=== PATIENT | male | born 1980 | race Caucasian/White ===

== ENCOUNTER 2020-11-09 06:49 | Observation (INO) | payer MEDICAID ==
[~2020-11-09] VITALS: Ht 182.9 cm; Wt 70.8 kg
[2020-11-09] MEDS ORDERED: LANTUS100 UNITS/ SUB-Q (06:55)
--- NOTE | 2020-11-09 09:18 | NUR ---
PT TO ROOM 128 FROM ED. PT MOVES SELF TO BED WITH NO DIFFICULTY. STATES HE HAS BEEN VOIDING WELL IN ED. PT CONTINUOUSLY ASKING FOR FOOD AND DRINKS.
[2020-11-09] MEDS ORDERED: LANTUS SOL100 UNIT/1 SUB-Q (09:20)
--- NOTE | 2020-11-09 10:00 | NUR ---
PTS BLOOD SUGAR 415, TITRATED INSULIN DRIP TO 7.2 UNITS/HR
--- NOTE | 2020-11-09 10:45 | NUR ---
PT ABLE TO VOID 425 ML. URINE SPECIMEN SENT TO LAB
--- NOTE | 2020-11-09 11:08 | NUR ---
PTS BLOOD SUGAR 425. TITRATED INSULIN DRIP TO 10.8 UNITS/HR. PT RESTING AT THIS TIME. DENIES NEEDS.
--- NOTE | 2020-11-09 12:15 | NUR ---
pts blood sugar 341, titrated insulin to 9 units/hr. pt reports that his nausea is better. given lunch tray.
--- NOTE | 2020-11-09 13:00 | NUR ---
PTS BLOOD SUGAR UP TO 347, TITRATED INSULIN DRIP UP TO 12 UNITS/HR. PT REQUESTS TO HAVE DRESSING PLACED TO FOOT ULCER. WOUND NURSE CALLED
--- NOTE | 2020-11-09 13:19 | NUR ---
AT DIRECTION OF WOUND CARE NURSE. WOUND TO LEFT FOOT CLEANED WITH WOUND SPRAY, MEDIHONEY PLACED TO WOUND BED AND COVERED WITH ALLYVN DRESSING. PT TOLERATED WELL
--- NOTE | 2020-11-09 14:21 | NUR ---
PTS BLOOD SUGAR 282, TITRATED DRIP TO 8.4 UNITS/HR
--- NOTE | 2020-11-09 15:07 | NUR ---
PATIENT BUSY WITH STAFF. CM WILL CHECK IN TO ASSESS LATER.
--- NOTE | 2020-11-09 15:14 | NUR ---
PTS BLOOD SUGAR 272, DRIP REMAINS AT 8.4 UNITS/HR
--- NOTE | 2020-11-09 16:04 | NUR ---
PTS BLOOD SUGAR 286, INSULIN DRIP TITRATED TO 10.5 UNITS/HR
--- NOTE | 2020-11-09 16:58 | NUR ---
PTS BLOOD SUGAR 265, DRIP REMAINS AT 10.5 UNITS/HR
--- NOTE | 2020-11-09 17:10 | NUR ---
DR WARE IN TO SEE PT. ORDER TO GIVE ONE LITER BOLUS OF LR OVER ONE HOUR.
--- NOTE | 2020-11-09 18:18 | NUR ---
PTS BLOOD DRAWN FROM IV SITE AND SENT TO LAB
--- NOTE | 2020-11-09 19:01 | NUR ---
pts blood sugar down to 169. titrated drip to 6 units per hour. Switched fluid to d5 1/2ns @ 125 ml/hr
--- NOTE | 2020-11-09 19:10 | NUR ---
REPORT GIVEN TO HOISTER RN
--- NOTE | 2020-11-09 20:00 | NUR ---
SHIFT REPORT RECEIVED FROM CORKY KNIGHT. ASSESSMENT COMPLETED. PT SOMEWHAT DROWSY BUT IS ORIENTED, DENIES PAIN. LUNGS CLEAR, RA. HR REGULAR, TACHY 100-105. BOWEL TONES ACTIVE, DENIES NAUSEA. SKIN GROSSLY INTACT WITHOUT EDEMA, REPORTS NUMBNESS/TINGLING TO ALL EXTREMITIES. ULCER TO LEFT FOOT COVERED WITH ALLEVYN THAT IS C/D/I. CB, INSULIN DRIP TITRATED TO 3.2 UNITS/HR PER PROTOCOL. PT PROVIDED WITH SUGAR-FREE CLEAR LIQUID PER REQUEST.
--- NOTE | 2020-11-09 20:43 | NUR ---
SPOKE TO DR. WARE REGARDING PT'S RECENT BLOOD SUGAR AND LAB VALUES. PLAN TO GIVE 40 UNITS SEMGLEE AND THEN CHANGE INSULIN AND BLOOD SUGAR CHECKS TO [facility]. MAY ADVANCE DIET TO [facility].
--- NOTE | 2020-11-09 21:05 | NUR ---
CB, NO SLIDING SCALE REQUIRED AT THIS TIME. INSULIN DRIP OFF. 40 UNITS SEMGLEE ADMINISTERED. WILL CHANGE IV FLUIDS TO LR IN 1 HOUR.
--- NOTE | 2020-11-09 22:11 | NUR ---
IV FLUIDS SWITCHED TO LR AT 125ML/HR. PT SLEEPING ON LEFT SIDE AT THIS TIME, NO APPARENT DISTRESS, RESPIRATIONS EVEN AND UNLABORED.
--- NOTE | 2020-11-10 00:18 | NUR ---
ASSESSMENT COMPLETED AND UNCHANGED. PT DENIES PAIN OR NAUSEA. IV FLUIDS INFUSING WNL, IV SITES INTACT. URINAL EMPTIED. PT DENIES REQUESTS, CALL LIGHT WITHIN REACH.
--- NOTE | 2020-11-10 03:30 | NUR ---
PT CALLED TO REQUEST WARM BLANKET. ASSESSMENT COMPLETED AND UNCHANGED AT THIS TIME. PT DENIES FURTHER NEEDS, CALL LIGHT WITHIN REACH.
--- NOTE | 2020-11-10 06:32 | NUR ---
PT APPEARS TO BE SLEEPING, NO APPARENT DISTRESS. IVF INFUSING WNL. URINAL EMPTIED.
[2020-11-10] MEDS ORDERED: VENTOLIN HFA18 GM INH (07:29)
[2020-11-10] MEDS ORDERED: SILDENAFIL CIT100 MG PO (07:29)
--- NOTE | 2020-11-10 08:00 | NUR ---
RECEIVED REPORT AT 0700, PT IN BED AWAKE. PT STATED THAT HE WAS DOING MUCH BETTER AND WISHES TO D/C TODAY OR HE WOULD BE LEAVING AMA. I ENCOURAGED PT TO STAY UNTIL MD COULD SEE HIM. ONLY ISSUE NOTED ASSESSMENT CHAMBERS WAS HIS DIABETIC FOOT ULCER WHICH NEEDS A DRESSING CHANGE. OTHERWISE NO NEW ISSUES WERE NOTED.
[2020-11-10] MEDS ORDERED: TYLENOL325 MG PO (09:37)
[2020-11-10] MEDS ORDERED: HUMALOG100 UNIT/2 SUB-Q (09:38)
[2020-11-10] MEDS ORDERED: VITAMIN C1000 MG PO (09:38)
--- NOTE | 2020-11-10 09:39 | NUR ---
MED REC COMPLETE
--- NOTE | 2020-11-10 10:00 | NUR ---
PT IN ROOM. NO NEW CONCERNS NOTED.
[2020-11-10] MEDS ORDERED: LANTUS SOL100 UNIT/1 SUB-Q (10:53)
[2020-11-10] MEDS ORDERED: HUMALOG100 UNITS/ SUB-Q (10:54)
--- NOTE | 2020-11-10 12:35 | NUR ---
DRESSING ON LEFT TOE CHANGED BEFOR D/C. PT HAS HAD NO NEW COMPLAINTS. NO NEW CONCERNS NOTED WITH SECOND ASSESSMENT. PT EATING LUNCH AND IS READY FOR D/C AFTER.
== END 2020-11-10 13:25 | disposition home or self-care (01) ==
LOC: ED 06:49 → CCU 06:51
PROVIDERS: ADMIT Student in an Organized Health Care Education/Training Program; ATTEND Student in an Organized Health Care Education/Training Program
DX: E10.10 Type 1 diabetes mellitus with ketoacidosis without coma (principal); Z91.14 Patient's other noncompliance with medication regimen; Z79.4 Long term (current) use of insulin; Z20.822 Contact with and (suspected) exposure to COVID-19
CPT/HCPCS: 80048; 80053; 81001; 82010; 82803; 83690; 83735; 84100; 85025; 96375; 96376; A9270; C9803; G0378; J1815; J2405; J3475; J7030; J7042; J7121; U0003